=== PATIENT | male | born 1965 | race Caucasian/White ===

== ENCOUNTER 2019-04-14 14:04 | Emergency (ER) | payer OTHER ==
[~2019-04-14] VITALS: Ht 167.6 cm; Wt 96.6 kg
[2019-04-14 16:00] LABS: ABSOLUTE EOSINOPHILS 0.1 thou/uL (0.0-0.7); ABSOLUTE MONOCYTES 0.8 thou/uL (0.0-1.2); ABSOLUTE NEUTROPHILS 3.7 thou/uL (1.6-8.1); BASOPHILS 0.5 %; EOSINOPHILS 1.5 %; HEMATOCRIT 46.5 % (42.0-52.0); HEMOGLOBIN 16.1 gm/dL (14.0-18.0); LYMPHOCYTES 39.2 %; MCH 29.7 pg (26.0-34.0); MCHC 34.5 g/dL (28.0-37.0); MCV 86.1 fL (80.0-100.0); MONOCYTES 10.5 %; NUCLEATED RBCS 0 /100WBC; PLATELET COUNT* 177 thou/uL (150-400); POLYS 48.3 %; RBC 5.41 mil/uL (4.50-6.00); RDW-CV 13.2 % (10.5-14.5); WBC 7.8 thou/uL (4.0-11.0)
[2019-04-14 16:03] LABS: URINE BILIRUBIN NEGATIVE (Negative); URINE BLOOD NEGATIVE (Negative); URINE CLARITY CLEAR; URINE COLOR YELLOW; URINE GLUCOSE-RANDOM 2+ (Negative); URINE KETONES NEGATIVE (Negative); URINE LEUKOCYTES-REFLEX NEGATIVE (Negative); URINE NITRITE-REFLEX NEGATIVE (Negative); URINE PROTEIN TRACE (Negative); URINE SPECIFIC GRAVITY 1.025 (1.005-1.030)
[2019-04-14 16:09] LABS: CALCIUM 8.9 mg/dL (8.5-10.1); CREATININE 0.9 mg/dL (0.6-1.3); POTASSIUM 3.6 mmol/L (3.5-5.1)
[2019-04-14 16:22] LABS: ALBUMIN 3.9 g/dL (3.4-5.0); TOTAL BILIRUBIN 0.6 mg/dL (<0.1-1.0); TOTAL PROTEIN 7.9 g/dL (6.4-8.2)
[2019-04-14] MEDS ORDERED: CIPRO500 MG PO (17:01)
[2019-04-14] MEDS ORDERED: FLAGYL500 M1 PO (17:01)
[2019-04-14] MEDS ORDERED: ROXICODONE5 MG PO (17:01)
[2019-04-14] MEDS ORDERED: METFORMIN HCL500 MG PO (17:05)
[2019-04-14 17:19] VITALS: BP 125/85
--- NOTE | 2019-04-15 11:01 | EKG ---
[place] [address] ELECTROCARDIOGRAM REPORT Name: BRENDATRINO Room: [facility]#: [id number] Admission: 04/14/19 Attend Phys: Discharge: 04/14/19 Date of : 67 Report #: [id number] THIS REPORT FOR: //name// [facility] ED Test Date: 2019-04-14 Test Time: 16:44:48 Pat Name: TRINO GUTIERREZ Department: Room: Gender: M Site Auditor: MIRTHA : 1965 Requested By: No Oseguera Order Number: [id number] MD: Earl Randall Measurements Intervals [place] Rate: 52 P: 28 SC: 161 QRS: 30 QRSD: 91 T: 31 QT: 434 QTc: 404 Interpretive Statements Sinus rhythm No previous ECG available for comparison Electronically Signed On 04-15-2019 11:00:42 ELECTRIC POWER LINE EXAMINER by Earl Randall [email or web address] <ELECTRONICALLY SIGNED> By: Earl Randall MD, [facility] 04/15/19 1100 1644 1644 Earl Randlal MD, FACC /EPI
== END 2019-04-14 17:20 | disposition home or self-care (01) ==
LOC: M.ERS 14:04
PROVIDERS: Nurse Practitioner Family
DX: K57.92 Diverticulitis of intestine, part unspecified, without perforation or abscess without bleeding (principal); E11.65 Type 2 diabetes mellitus with hyperglycemia